=== PATIENT | female | born 1930 | race Caucasian/White ===

== ENCOUNTER 2017-04-05 16:31 | Observation (INO) | payer OTHER ==
--- NOTE | 2017-04-05 16:23 | EDPHY ---
HPI/HX/ROS/PE/MDM Narrative: CHIEF COMPLAINT: Faintness HPI: The patient is an anticoagulated 86 y/o female arriving via EMS complaining of feeling faint, weak, and like she was having "atrial fibrillation " onset 3:00 PM, almost 2 hours ago. She has a history of episodic atrial fibrillation and hypertension for which she takes beta blockers and Warfarin. She recently increased her Norvasc from 5mg to 7.5mg but she felt ill at the higher dose so she returned to the 5mg dose last week. Today around 3:00 PM, she was walking home from volunteering when she began feeling faint and like she was having "atrial fibrillation". She called EMS who performed an EKG en route and found it to be abnormal. She has associated chest pressure and sore throat. She denies chest pain, loss of consciousness, or any other associated symptoms. REVIEW OF SYSTEMS: Aside from elements discussed in the HPI, a comprehensive 10-point review of systems was reviewed and is negative. PMH: Atrial fibrillation, hypertension, leaky aortic valve, transient RVR. SOCIAL HISTORY: Andres patient, volunteers at [employer], lives in [place]. PHYSICAL EXAM: General:Patient is alert, in no acute distress. ENT:Eyes are normal to inspection. ENT inspection normal. Neck: Normal inspection. Full range of motion. Respiratory:No respiratory distress. Breath sounds normal bilaterally. Cardiovascular: Normal rate. Strong peripheral pulses. Normal cap refill. Abdomen:The abdomen is nontender to palpation. There are no peritoneal signs. There are normal bowel sounds. Back: Normal to inspection. No tenderness to palpation. Skin: Normal color. No rash. Warm and dry. Extremities: Normal appearance. Full range of motion. Neuro: Oriented x3. Normal motor function. Normal sensory function. ED Course: 1807: I spoke with [facility] regarding admitting this patient to this hospital. They agree to admit her. 1809: I spoke to hospitalist service regarding admitting this patient. They agree to admit. Dr. Alarcon is admitting physician. MDM: This patient presents with weakness and several episodes of near syncope in setting of known paroxysmal a-fib with RVR. In the ED she is in and out of NSR. She is anticoagulated already which is good for afib, but places her at higher risk from afib and near syncope. She does not feel safe going home. Her symptoms are likely attributable to decreasing her Norvasc dose AMA. We will admit her for obs and further workup/therapy. - Data Points Imaging Results: Imaging Impressions Chest X-Ray 04/05/17 16:48 Impression: 1. Chronic bronchitis/airways disease. 2. No definite acute pneumonia. 3. Atherosclerotic tortuous aorta. EKG was ordered and interpreted by myself. Please see [employer] system for official reading. Imaging: Discussed imaging studies w/ body recall instructor Radiologist, I viewed and interpreted images myself Laboratory Results: Laboratory Results 04/05/17 16:33 04/05/17 16:33 04/05/17 04/05/17 04/05/17 16:33 16:33 16:33 WBC 7.15 10^3/uL 10^3/uL (3.80-9.50) RBC 4.83 10^6/uL 10^6/uL (4.18-5.33) Hgb 15.6 g/dL g/dL (12.6-16.3) Hct 45.0 % % (38.0-47.0) MCV 93.2 fL fL (81.5-99.8) MCH 32.3 pg pg (27.9-34.1) MCHC 34.7 g/dL g/dL (32.4-36.7) RDW 14.2 % % (11.5-15.2) Plt Count 249 10^3/uL 10^3/uL (150-400) MPV 10.2 fL fL (8.7-11.7) Neut % (Auto) 73.5 % % (39.3-74.2) Lymph % (Auto) 19.6 % % (15.0-45.0) Frederick % (Auto) 5.6 % % (4.5-13.0) Eos % (Auto) 0.7 % % (0.6-7.6) Baso % (Auto) 0.3 % % (0.3-1.7) Nucleat RBC Rel Count 0.0 % % (0.0-0.2) Absolute Neuts (auto) 5.26 10^3/uL 10^3/uL (1.70-6.50) Absolute Lymphs (auto) 1.40 10^3/uL 10^3/uL (1.00-3.00) Absolute Monos (auto) 0.40 10^3/uL 10^3/uL (0.30-0.80) Absolute Eos (auto) 0.05 10^3/uL 10^3/uL (0.03-0.40) Absolute Basos (auto) 0.02 10^3/uL 10^3/uL (0.02-0.10) Absolute Nucleated RBC 0.00 10^3/uL 10^3/uL (0-0.01) Immature Gran % 0.3 % % (0.0-1.1) Immature Gran # 0.02 10^3/uL 10^3/uL (0.00-0.10) PT 28.6 SEC H SEC (12.0-15.0) INR 2.65 H (0.83-1.16) APTT 41.9 SEC H SEC (23.0-38.0) Sodium 131 mEq/L L mEq/L (134-144) Potassium 4.5 mEq/L mEq/L (3.5-5.2) Chloride 94 mEq/L L mEq/L (97-110) Carbon Dioxide 26 mEq/l mEq/l (22-31) Anion Gap 11 mEq/L mEq/L (8-16) BUN 24 mg/dL H mg/dL (7-23) Creatinine 0.9 mg/dL mg/dL (0.6-1.0) Estimated GFR 59 Glucose 111 mg/dL H mg/dL (70-100) Calcium 9.8 mg/dL mg/dL (8.5-10.4) Troponin I < 0.012 ng/mL ng/mL (0.000-0.034) TSH 3.160 uIU/mL uIU/mL (0.465-4.680) General Initial Vital Signs: Initial Vital Signs Temperature (C) 36.5 C 04/05/17 16:32 Heart Rate 152 H 04/05/17 16:32 Respiratory Rate 13 04/05/17 16:32 Blood Pressure 178/102 H 04/05/17 16:32 O2 Sat (%) 94 04/05/17 16:32 O2 Delivery Mode Room Air Allergies/Adverse Reactions: barbiturates Allergy (Mild, Uncoded 02/17/16 09:12) Home Medications: Medication Instructions Recorded Herbals/Supplements -Info Only 1 ea PO DAILY 02/17/16 Valsartan [Diovan (*)] 160 mg PO BID 02/17/16 Warfarin Sodium [Coumadin 2.5MG 2.5 mg PO SUMOTUTHFRSA@209902/17/16 (*)] Warfarin Sodium [Coumadin 2.5MG 3.75 mg PO WE@209902/17/16 (*)] amLODIPine BESYLATE [Norvasc 5 mg 5 mg PO DAILY 02/17/16 (*)] Acetaminophen [Tylenol ES 500 mg 1,000 mg PO Q6 PRN 04/05/17 (*)] Multivitamins [Multivitamin (*)] 1 each PO DAILY 04/05/17 predniSONE 5 mg PO DAILY 04/05/17 Bisoprolol Fumarate [Zebeta (*)] 7.5 mg PO BID #90 tab 04/06/17 Departure - Departure Disposition: [facility] Inpatient Acute Clinical Impression: Weakness Fibrillation, atrial Qualifiers: Atrial fibrillation type: paroxysmal Qualified Code(s): I48.0 - Paroxysmal atrial fibrillation Condition: Good Report Scribed for: Joe Garza Report Scribed by: Andressa Gaviria Date of Report: 04/05/17 Time of Report: 16:22 Physician Review and Approval Statement: Portions of this note were transcribed by an ED scribe. I personally performed the history, physical exam, and medical decision making; and confirm the accuracy of the information in the transcribed note.
--- NOTE | 2017-04-05 16:39 | CPEKG ---
Heart Rate: 117 RR Interval: 513 QRSD Interval: 82 QT Interval: 360 QTC Interval: 503 QRS [place]: 42 T Wave [place]: 60 EKG Severity - ABNORMAL ECG - EKG Impression: SINUS RHYTHM WITH PAROXYSMAL ATRIAL FIBRILLATION EKG Impression: LEFT VENTRICULAR HYPERTROPHY EKG Impression: Paroxysmal atrial fibrillation is new since February 17, 2016 Electronically Signed By: Dariusz Jaffe 09-Apr-2017 11:02:45
[2017-04-05 17:16] LABS: % IMMATURE GRANULYOCYTES 0.3 % (0.0-1.1); ABSOLUTE IMMATURE GRANULOCYTES 0.02 10^3/uL (0.00-0.10); ADD DIFF? NO; ADD MORPH? NO; ADD SCAN? NO; ATYPICAL LYMPHOCYTE FLAG 10 (0-99); FRAGMENT RBC FLAG 0 (0-99); HEMOGLOBIN 15.6 g/dL (12.6-16.3); LEFT SHIFT FLG 0 (0-99); LIPEMIA HEMOLYSIS FLAG 90 (0-99); MEAN CELL HEMOGLOBIN 32.3 pg (27.9-34.1); MEAN CELL HEMOGLOBIN CONCENTR. 34.7 g/dL (32.4-36.7); MEAN CELL VOLUME 93.2 fL (81.5-99.8); MEAN PLATELET VOLUME 10.2 fL (8.7-11.7); PLATELET CLUMPS FLAG 10 (0-99); PLATELET COUNT 249 10^3/uL (150-400); RED BLOOD CELL COUNT 4.83 10^6/uL (4.18-5.33); RED CELL DISTRIBUTION WIDTH 14.2 % (11.5-15.2)
[2017-04-05 17:20] LABS: ANION GAP 11 mEq/L (8-16); CALCIUM 9.8 mg/dL (8.5-10.4); CARBON DIOXIDE 26 mEq/l (22-31); CHLORIDE 94 mEq/L (97-110); CREATININE 0.9 mg/dL (0.6-1.0); GLOMERULAR FILTRATION RATE 59; GLUCOSE 111 mg/dL (70-100); POTASSIUM 4.5 mEq/L (3.5-5.2); SODIUM 131 mEq/L (134-144)
[2017-04-05 17:21] LABS: APTT 41.9 SEC (23.0-38.0); INR 2.65 (0.83-1.16); PROTIME(PATIENT) 28.6 SEC (12.0-15.0)
[2017-04-05 17:32] LABS: TROPONIN I < 0.012 ng/mL (0.000-0.034)
[2017-04-05] MEDS ORDERED: amLODIPine BESYLATE 5 MG TAB PO ONE (18:11)
[2017-04-05] MEDS ORDERED: ONDANSETRON 4 MG/2 ML VIAL IVP PRN (19:27)
[2017-04-05] MEDS ORDERED: ONDANSETRON DISINTEGRATING 4 MG TAB PO PRN (19:27)
[2017-04-05] MEDS ORDERED: ACETAMINOPHEN 325 MG TAB PO PRN (19:27)
[2017-04-05] MEDS ORDERED: NS 1,000 ML IV SCH (19:45)
[2017-04-05] MEDS ORDERED: WARFARIN SODIUM 2.5 MG TAB PO SCH (21:30)
[2017-04-06 04:54] LABS: ANION GAP 12 mEq/L (8-16); CALCIUM 8.8 mg/dL (8.5-10.4); CARBON DIOXIDE 27 mEq/l (22-31); CHLORIDE 100 mEq/L (97-110); CREATININE 0.7 mg/dL (0.6-1.0); GLOMERULAR FILTRATION RATE > 60; GLUCOSE 78 mg/dL (70-100); POTASSIUM 3.9 mEq/L (3.5-5.2); SODIUM 139 mEq/L (134-144)
[2017-04-06 08:07] VITALS: O2SAT 96
[2017-04-06] MEDS ORDERED: predniSONE 5 MG TAB PO SCH (09:00)
[2017-04-06] MEDS ORDERED: BISOPROLOL FUMARATE 5 MG TAB PO SCH (09:00)
--- NOTE | 2017-04-06 10:44 | ASMTCMCOM ---
CM Note CM Note Notes: 04/06/2017 Case Management Note Met w/pt. Pt lives alone in home. Son Vicente [phone] helps with outdoor chores and his helps with housekeeping. Pt still drives and is able to obtain groceries and prepare meals independently. No case management d/c needs identified. Case Management d/c poc: Home independent with follow up as directed when medically stable. Date Signed: 04/06/2017 10:43 AM Electronically Signed By:Palak De Paz RN
[2017-04-06 11:43] VITALS: BP 140/49; PULSE 48; RESP 11; TEMP 98
--- NOTE | 2017-04-06 13:39 | ECHO ---
[email or web address] [address] [address] Main: [phone] Fax: Transthoracic Echocardiogram Name: BREEZY MARCUM MR#: [id number] Study Date: 04/06/2017 Study Time: 08:43 AM Date of : 1930 Age: 86 year(s) Height: 157.5 cm (62 in.) Weight: 45.36 kg (100 lb.) BSA: 1.42 m2 Gender: Female Examination: Echo Indication: New onset A-fib, Murmur Image Quality: Contrast: Requested by: Ermelinda Alarcon BP: 174 mmHg/52 mmHg Heart Rate: Rhythm: Indication: New onset A-fib, Murmur Procedure Staff Check Embosser: Sam Smith Reading Physician: Meño White Requesting Provider: Conclusions: Normal size left ventricle. EF is 74 %. No regional wall motion abnormality. Diastolic dysfunction is present. . Mild mitral valve leaflet calcification is present. Mild mitral valve regurgitation is present. The aortic valve is tri-leaflet. Mild aortic cusp calcification is noted. Severe aortic valve regurgitation is present. Trivial tricuspid valve regurgitation. Measurements: Chambers Valvular Assessment AV/MV Valvular Assessment TV/PV Normal Normal Normal Name Value Range Name Value Range Name Value Range Ao Kenna (MM): 2.6 cm (2.2 cm-3.7 AV Vmax: 1.72 m/s (1 m/s-1.7 TR Vmax: 2.58 mm/s ( - ) cm) m/s) TR PGmax: 27 mmHg ( - ) IVSd (2D): 0.6 cm (0.6 cm-1.1 AV maxP mmHg ( - ) syst. PAP: 32 mmHg ( - ) cm) AV meanP mmHg ( - ) PV Vmax: 0.84 m/s (0.6 m/s-0.9 LVDd (2D): 5.2 cm (3.9 cm-5.3 LVOT Vmax: 1.35 m/s (0.7 m/s-1.1 m/s) cm) m/s) PV PGmax: 3 mmHg ( - ) LVDs (2D): 2.9 cm (2.1 cm-4 STEPHANIE (Vmax): 2.2 cm2 ( - ) cm) STEPHANIE (VTI): 2.0 cm ( - ) LVPWd (2D): 0.8 cm ( - ) AR (PHT): 420 ms ( - ) LVOTd 1.9 cm 1.9 cm mm MV E Vmax: 0.75 m/s ( - ) LVEF (2D): 74 (>=54 %) MV A Vmax: 0.44 m/s ( - ) MV E/A: 1.70 ( - ) MV maxP mmHg ( - ) MV meanP mmHg ( - ) MVA (Vmax): 2.6 m/s ( - ) Patient: BREEZY MARCUM Study Date: 04/06/2017 Page 1 of 2 08:43 AM Continued Measurements: Chambers Valvular Assessment AV/MV Valvular Assessment TV/PV Name Value Name Value Name Value LADs Lon.2 cm MV E/E' Septal: 11.80 CVP (est.): 5 mmHg LA Area: 20.5 cm2 MV E/E' Lateral: 9.20 LA Volume: 58 ml MV VTI: 39.50 cm LA Volume Index: 40.8 ml/m2 AR Vmax: 4.87 cm/s AR ERO: 0.320 cm2 AR PISA radius: 0.9 cm AR Reg. Volume: 85.0 ml AR Reg. Fraction: 83 % AR VTI: 267.0 cm Findings: Left Ventricle: Normal size left ventricle. No LV hypertrophy. Normal global systolic LV function. EF is 74 %. No regional wall motion abnormality. Diastolic dysfunction is present. . Right Ventricle: Normal size right ventricle. Normal RV function. Left Atrium: The left atrium is mildly dilated. Right Atrium: The right atrium is normal in size. Mitral Valve: Mild mitral valve leaflet calcification is present. Mild mitral valve regurgitation is present. Aortic Valve: The aortic valve is tri-leaflet. Mild aortic cusp calcification is noted. Severe aortic valve regurgitation is present. The AI ERO is .32 cm2 Tricuspid Valve: The tricuspid valve appears normal. Trivial tricuspid valve regurgitation. The pulmonary artery pressure is normal. Pulmonic Valve: The pulmonic valve is normal in appearance and function. Aorta: The aorta is normal. Pericardium: No pericardial effusion. (No Signature Object) Patient: BREEZY MARCUM Study Date: 04/06/2017 Page 2 of 2 08:43 AM [id number]
--- NOTE | 2017-04-06 16:01 | ASDISCHSUM ---
Discharge Information Plan Status:Home with No Needs Medically Cleared to Leave:04/06/2017 Discharge Date:04/06/2017 03:20 PM CM D/C Disposition:Home, Routine, Self-Care ADT D/C Disposition:Home, Routine, Self-Care Projected Discharge Date:04/06/2017 03:20 PM Transportation at D/C:Family Discharge Delay Reason: Follow-Up Date:04/06/2017 03:20 PM Discharge Slot: Final Diagnosis: Placement Information Patient Contact Information Contact Name:DANIELLE Relationship:Son Address:[address] Work Phone: City:[place] [facility] Phone: [facility]/Zip Code:[place] [address] Email: Financial Information Financial Class:Medicare Advantage Plans Primary Plan Desc:[employer] ADVANTAGE OUTPAT Primary Plan Number:[id number] Secondary Plan Desc: Secondary Plan Number: Assessment Information [facility] CM Progress Note CM Note CM Note Notes: 04/06/2017 Case Management Note Met w/pt. Pt lives alone in home. Son Vicente [phone] helps with outdoor chores and his helps with housekeeping. Pt still drives and is able to obtain groceries and prepare meals independently. No case management d/c needs identified. Case Management d/c poc: Home independent with follow up as directed when medically stable. Date Signed: 04/06/2017 10:43 AM Electronically Signed By:Palak De Paz RN Intervention Information Intervention Type:*BERNARD-Signed Date of Service:04/06/2017 09:32 AM Patient Type:Observation Staff Member:Heather Leiva Hours: Discipline: Severity: Comment:
--- NOTE | 2017-04-06 18:02 | PDDCSUM ---
Discharge Summary Discharge Summary: DISCHARGE SUMMARY FOLLOW-UP ITEMS: Follow up with regular silviculture forester and discuss outpatient nuclear medicine stress test as well as cardiothoracic surgery evaluation DATE OF ADMISSION: 04/05/2017 DATE OF DISCHARGE: 04/06/2017 DISCHARGE DIAGNOSES: 1. Acute paroxysmal atrial fibrillation with rapid ventricular response 2. Severe aortic insufficiency 3. Acute hyponatremia CONSULTATIONS: Cardiology PROCEDURES / IMAGING: Echocardiogram demonstrating severe aortic insufficiency, diastolic dysfunction CHIEF COMPLAINT: Acute near syncope SUBJECTIVE: Patient is feeling well at time discharge, she has not had any recurrent symptoms PHYSICAL EXAM ON DISCHARGE: Systolic blood pressure is 140, heart rate is 50 to 70, satting on room air, afebrile overnight, lungs are clear to auscultation bilaterally, heart rhythm is regular, with a 1/6 diastolic murmur at the right sternal border, no lower extremity edema LABS ON DISCHARGE: Troponin negative x2, creatinine 0.9, potassium 3.9, serum sodium 139, TSH 3, INR 2.6 HOSPITAL COURSE BY PROBLEM: The patient presented with near-syncope and exertional shortness of breath in the setting of paroxysmal atrial fibrillation and severe aortic insufficiency. On patient's rhythm strip she was noted to be going in and out of atrial fibrillation and normal sinus mechanism, and we increased her home dosage of beta julius, bisoprolol 7.5 mg twice daily. This chemically cardioverted her back into a normal sinus rhythm and she was maintained in this rhythm during the remainder of her stay. She was therapeutic on her INR, was continued on Coumadin. She had echocardiogram performed which demonstrated severe aortic insufficiency, but after Cardiology review, this degree of insufficiency had not significantly progressed since her last echo. It is certainly possible that her exertional shortness of breath as well as her near syncopal symptoms are secondary to a combination of her valvular insufficiency as well as her uncontrolled intermittent atrial fibrillation. The patient is not amenable to cardiothoracic surgery at this time, and we recommended that she follow up with her primary care provider for ongoing surveillance of this issue, as well as a nuclear medicine stress test to evaluate for any obstructive coronary disease which may also be contributing to her symptoms. It should be noted that the patient did not experience any anginal symptoms during this hospitalization, and urgent stress testing is not indicated. We did recommend remaining on the higher dose of her beta-julius, in order to maintain normal sinus mechanism, and discontinuation of her outpatient diuretic. She will otherwise remain on her other home antihypertensives, she should follow up with her silviculture forester in the next several days. It should also be noted that her hyponatremia improved with improving her rhythm and consequently her cardiac output. DISCHARGE MEDICATIONS: Please see official discharge medication reconciliation sheet in chart , continue home medications with the exception of discontinuation of her hydrochlorothiazide, and increase in her bisoprolol 7.5 mg twice daily DISCHARGE INSTRUCTIONS: Please follow up with Dr. Winters within the next several days
[2017-04-06] MEDS ORDERED: BISOPROLOL FUMARATE 5 MG TAB PO ONE (18:34)
--- NOTE | 2017-04-06 19:23 | GCON ---
[f rep st] CONSULTATION CARDIAC CONSULTATION DATE OF CONSULTATION: 04/06/2017 CHIEF COMPLAINT: Presyncope and palpitations. HISTORY OF PRESENT ILLNESS: The patient is an 86-year-old female, who is typically followed at [facility] by Dr. Winters. She has a history of hypertension, aortic insufficiency and paroxysmal atrial fibri llation. Admitted with atrial fibrillation and presyncope. She has a long history of atrial fibrill ation, which has become more frequent recently. She is noting episodes occurring approximately once a month and are associated with lightheadedness, chest pressure and shortness of breath. She typical ly takes additional 5 of bisoprolol, which converts her to normal rhythm. Her most recent event was a little unusual for her. She first noted symptoms when she was doing her normal 1 mile walk to the [employer]. She was able to work her 2-1/2 hour shift but, on her way back, she became significantly pr esyncopal. She typically is unable to assess her heart rate but, on this occasion, her rate was appr oximately 65 but irregular. Her symptoms came on suddenly and were more severe than normal, which wa s unusual for her. She was not sure if she was in atrial fibrillation. Therefore, EMS was activated . She was found to have paroxysmal atrial fibrillation which was documented by EKG. She was given 5 mg of bisoprolol, which converted her to normal sinus rhythm. She remained in normal rhythm through out the night. An echocardiogram today revealed preserved LV function with severe aortic insufficien cy. Her last documented echo that I have access to was in 2009, at which time she had moderate aorti c insufficiency. The patient also complains of exertional dyspnea on exertion. She used to hike on a regular basis bu t has been unable to do so over the last 5 years. She notes significant shortness of breath and ches t pressure when walking up an incline. PAST MEDICAL HISTORY: Hypertension, paroxysmal atrial fibrillation, aortic insufficiency. FAMILY HISTORY: Noncontributory. SOCIAL HISTORY: She is a [facility] patient and currently lives in [place]. She volunteers at the [employer] and does walk a mile to the [employer] and a mile back. She is currently accompanied by her son. REVIEW OF SYSTEMS: Negative except for what is stated in the H and P. HOME MEDICATIONS: 1. Coumadin 2.5 mg daily except for 3.75 mg on Wednesday. 2. Diovan 160 mg twice daily. 3. Herbal supplement daily. 4. Amlodipine 5 mg daily. 5. Prednisone 5 mg daily. 6. Multivitamin daily. 7. Bisoprolol 7.5 mg at bedtime, 5 mg in the morning. ALLERGIES: Barbiturates. PHYSICAL EXAMINATION: GENERAL: Patient appears in no acute distress. VITAL SIGNS: Blood pressure 140/49, heart rate 48, oxygen saturation of 96% on room air. NECK: No carotid bruits or JVD present . LUNGS: Clear to auscultation. No wheezes, rhonchi or crackles auscultated. CARDIAC: Regular ra te and rhythm with a diastolic and systolic murmur. ABDOMEN: Soft, nontender, nondistended. EXTREM ITIES: Palpable pulses bilaterally without any evidence of edema. NEUROLOGIC: Nonfocal. PSYCHIATR IC: Mood and affect appropriate. SKIN: No obvious rashes or ecchymosis identified. LABORATORY: Troponin negative x2. CBC within normal limits. INR 2.65. BMP within normal limits. TSH 3.16. DIAGNOSTIC STUDIES: EKG revealed paroxysmal atrial fibrillation. Telemetry showed normal sinus rhyt hm. ASSESSMENT: The patient is an 86-year-old female with a history of aortic insufficiency, hypertensio n and paroxysmal atrial fibrillation, who was admitted with atrial fibrillation and presyncope. PLAN: The patient is typically followed by Dr. Winters at [facility]. She has history of paroxysmal atri al fibrillation which has become more frequent but is fairly well controlled with bisoprolol. She ta kes additional doses for symptomatic atrial fibrillation. On the most recent occasion, she was not s ure she was in atrial fibrillation. Therefore, did not take the medication. [facility], she was given an additional dose of bisoprolol and has remained in normal sinus rhythm since t hat time. I think it is reasonable for her to continue her current medical regimen. If her events b ecome more frequent, she may be a good candidate for antiarrhythmic therapy. She has a CHADS2-VASc s core of 4. Therefore, will continue Coumadin. Her INR is therapeutic at 2.65. She is complaining of exertional chest discomfort and dyspnea on exertion, which is concerning for an maki. This has been present for the past 5 years but does reduce her ability to exercise. I do thin k it would be reasonable for her to have further assessment of her coronary circulation with either a n angiogram or nuclear stress test as an outpatient. She has severe aortic insufficiency, which appears to be fairly stable on the basis of her last echo in 2009. Her ejection fraction is normal. She discussed aortic valve surgery in the past and was no t interested. She will follow up with her primary plush finisher. /[id number]
[2017-04-07] MEDS ORDERED: WARFARIN SODIUM 2.5 MG TAB PO SCH (21:00)
== END 2017-04-06 15:20 | disposition home or self-care (01) ==
LOC: EDUNIT# → F2W 19:50
PROVIDERS: ADMIT Hospitalist; ATTEND Internal Medicine
DX: I48.0 Paroxysmal atrial fibrillation (principal); E87.1 Hypo-osmolality and hyponatremia; I35.1 Nonrheumatic aortic (valve) insufficiency; R94.31 Abnormal electrocardiogram [ECG] [EKG]; R55 Syncope and collapse; R53.1 Weakness; I10 Essential (primary) hypertension; M10.9 Gout, unspecified; Z79.01 Long term (current) use of anticoagulants
CPT/HCPCS: 71020; 93005; 93306; G0378